=== PATIENT | male | born 1970 | race Caucasian/White ===

== ENCOUNTER 2016-11-04 16:50 | Emergency (ER) | payer OTHER ==
[~2016-11-04] VITALS: Wt 86.2 kg
[2016-11-04] MEDS ORDERED: ZANTAC 7575 M1 PO (17:00)
== END 2016-11-04 18:40 | disposition home or self-care (01) ==
LOC: ED 16:50
DX: M79.671 Pain in right foot (principal); Z88.5 Allergy status to narcotic agent; X50.9XXA Other and unspecified overexertion or strenuous movements or postures, initial encounter; Y93.89 Activity, other specified; Y92.89 Other specified places as the place of occurrence of the external cause; Y99.9 Unspecified external cause status

== ENCOUNTER 2021-06-19 00:30 | Emergency (ER) | payer SELFPAY ==
[~2021-06-19] VITALS: Ht 180.3 cm; Wt 76.2 kg
[~2021-06-19 00:30] MED LIST: ZANTAC 7575 M1 PO
[2021-06-19] MEDS ORDERED: NEBULIZER ×2 (02:15→10:23)
[2021-06-19] MEDS ORDERED: Ipratropium Brom3 ML INH ×3 (02:15→10:23)
[2021-06-19] MEDS ORDERED: PROAIR HFA8.5 GM INH ×3 (02:15→10:23)
[2021-06-19] MEDS ORDERED: PREDNISONE20 M1 PO ×3 (02:15→10:23)
== END 2021-06-19 02:19 | disposition home or self-care (01) ==
LOC: ED 00:30
DX: J45.901 Unspecified asthma with (acute) exacerbation (principal); Z88.8 Allergy status to other drugs, medicaments and biological substances